=== PATIENT | female | born 1970 | race Caucasian/White ===

== ENCOUNTER 2018-07-04 13:39 | Emergency (ER) | payer MEDICARE, OTHER ==
[2018-07-04 13:44] VITALS: RESP 20
[2018-07-04] MEDS ORDERED: MORPHINE SULFATE 4 MG/ML SYRINGE IM STA (14:10)
[2018-07-04] MEDS ORDERED: HYDROmorphone 0.5 MG/0.5 ML SYRINGE IM STA (14:11)
--- NOTE | 2018-07-04 14:16 | ED ---
General Adult HPI - General Chief complaint: Back Pain/Injury Stated complaint: Back pain Time Seen by Provider: 07/04/18 14:01 Source: patient, EMS, RN notes reviewed, old records reviewed Mode of arrival: EMS Limitations: no limitations - History of Present Illness Initial comments: 48-year-old female patient past medical history of multiple lumbar back procedures presents to the lumbar back pain. Patient's symptoms feel similar to back pain she is experiencing the past. Patient states this has been causing difficulty for approximately 3 days. She describes right paralumbar pain which radiates down her right posterior leg. She denies any saddle anesthesia, loss of bowel or bladder control, lower extremity weakness. Patient denies any other complaints at this time. Denies any chest pain, shortness of breath. Patient denies any recent falls or trauma. Systemic: Pt denies fatigue, fever/chills, rash. Pt denies weakness, night sweats, weight loss. Neuro: Pt denies headache, visual disturbances, syncope or pre-syncope. HEENT: Pt denies ocular discharge or irritation, otalgia, rhinorrhea, pharyngitis or notable lymphadenopathy. Cardiopulmonary: Pt denies chest pain, SOB, heart palpitations, dyspnea on exertion. Abdominal/GI: Pt denies abdominal pain, n/v/d. : Pt denies dysuria, burning w/ urination, frequency/urgency. Denies new onset urinary or bowel incontinence. MSK: Pt denies loss of strength or function in extremities. Neuro: Pt denies new onset weakness, paresthesias. - Related Data Home Medications Medication Instructions Recorded Confirmed Pregabalin [Lyrica] 200 mg PO TID 12/16/16 07/04/18 ALPRAZolam [Xanax] 1 mg PO BID PRN 07/04/18 07/04/18 HYDROcodone/APAP 10-325MG [Cecil 1 tab PO TID PRN 07/04/18 07/04/18 10-325] Previous Rx's Medication Instructions Recorded Cyclobenzaprine [Flexeril] 1 - 2 tab PO TID #20 tablet 07/04/18 predniSONE 50 mg PO DAILY #5 tab 07/04/18 Allergies Allergy/AdvReac Type Severity Reaction Status Date / Time morphine AdvReac Itching Verified 07/04/18 13:56 Review of Systems ROS Statement: Those systems with pertinent positive or pertinent negative responses have been documented in the HPI. ROS Other: All systems not noted in ROS Statement are negative. 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 HEENT: NC/AT, trachea midline, neck supple, no lymphadenopathy. Posterior pharynx non erythematous, without exudates. External ears appear normal, without discharge. Mucous membranes moist. Eyes PERRLA, EOM intact. There is no scleral icterus. No pallor noted. Cardiopulmonary: RRR, no murmurs, rubs or gallops, no JVD noted. Lungs CTAB in anterior and posterior bentley. No peripheral edema. Abdominal exam: Abdomen soft and non-distended. Abdomen non-tender to palpation in all 4 quadrants. Bowel sounds active in LLQ. No hepatosplenomegaly. No ecchymosis Neuro: CN II-XII grossly intact. No nuchal rigidity. MSK: 5 out of 5 strength quadriceps and psoas muscles. Heel to toe walking intact. Patient ambulatory without difficulty. Sensation intact. No midline cervical or thoracic back pain. Mild right paralumbar back pain. Right straight leg raise positive. No posterior calf tenderness bilaterally, homans sign negative bilaterally. Posterior tibialis and radial pulse +2 bilaterally. Sensation intact in upper and lower extremities. Full active ROM in upper and lower extremities, 5/5 stregnth. Limitations: no limitations Course Vital Signs 07/04/18 07/04/18 13:41 16:03 Temperature 97.9 F 98.7 F Pulse Rate 96 88 Respiratory 20 20 Rate Blood Pressure 134/86 145/65 O2 Sat by Pulse 98 99 Oximetry Medical Decision Making - Medical Decision Making 48-year-old female patient past medical history of multiple lumbar back procedures presents to the lumbar back pain. Patient's symptoms feel similar to back pain she is experiencing the past. Patient states this has been causing difficulty for approximately 3 days. She describes right paralumbar pain which radiates down her right posterior leg. She denies any saddle anesthesia, loss of bowel or bladder control, lower extremity weakness. Patient denies any other complaints at this time. Denies any chest patient's of breath. Patient denies any recent falls or trauma. Patient vital signs stable, afebrile. Physical exam displayed: Sensation intact. No midline cervical or thoracic back pain. Mild right paralumbar back pain. Right straight leg raise positive. No posterior calf tenderness bilaterally, homans sign negative bilaterally. Posterior tibialis and radial pulse +2 bilaterally. Plain films of lumbar spine displayed degenerative disc disease, facet arthropathy, postop changes. Patient will be discharged with orthopedic follow-up. PT prescribed 5 days of prednisone as well as muscle relaxer to use as needed. Patient will continue follow-up with primary care provider as well. Pt not driving home. Patient will return to ER if condition worsens in any way. Case discussed with Dr. Littlejohn. Disposition Clinical Impression: Lumbar back sprain, Chronic lumbar pain Disposition: HOME SELF-CARE Condition: Stable Instructions (If sedation given, give patient instructions): Acute Low Back Pain (ED), Chronic Back Pain (ED) Additional Instructions: Patient to adhere to previously discussed treatment plan and will take medication(s) as directed. Patient to follow up with PCP in 1-2 days. Patient to return to ED if symptoms do not improve. Please follow-up with surgical consult. Please follow-up with primary care provider. Return to ER if condition worsens in any way. Prescriptions: Cyclobenzaprine [Flexeril] 1 - 2 tab PO TID #20 tablet predniSONE 50 mg PO DAILY #5 tab Is patient prescribed a controlled substance at d/c from ED?: No Referrals: Les Fernando MD [Primary Care Provider] - 1-2 days Danna Hernandez DO [Doctor of Osteopathic Medicine] - 1-2 days
--- NOTE | 2018-07-04 15:00 | XR ---
Lumbar spine HISTORY: Chronic back pain 3 views of the lumbar spine correlated to prior exam 12/16/2016 Exam is stable. Postop changes are noted at the lumbosacral junction status post fusion and laminecto mies. Surgical clips are present in the right upper quadrant. Lumbar vertebral bodies show stable hei ght, alignment, and bone mineralization. There is multilevel spondylosis. Loss of disc height is grea test at L5-S1, L4-5. Sclerosis present in the posterior elements compatible with facet arthropathy. IMPRESSION: Degenerative disc disease, facet arthropathy and postop changes.
[2018-07-04] MEDS ORDERED: KETOROLAC 30 MG/ML 1 ML VIAL IM STA (15:52)
[2018-07-04 16:04] VITALS: BP 145/65; PULSE 88; TEMP 98.7
== END 2018-07-04 16:04 | disposition home or self-care (01) ==
LOC: SUPCPDRO 13:39 → EC 13:39
DX: S33.5XXA Sprain of ligaments of lumbar spine, initial encounter (principal); M54.5 Low back pain; G89.29 Other chronic pain; F17.200 Nicotine dependence, unspecified, uncomplicated; Z79.899 Other long term (current) drug therapy; Z88.5 Allergy status to narcotic agent; Z53.8 Procedure and treatment not carried out for other reasons
CPT/HCPCS: 72100; 99284; 96372 ×2; J1885; J1170

== ENCOUNTER 2018-11-17 22:56 | Emergency (ER) | payer MEDICARE, OTHER ==
[2018-11-17 23:04] VITALS: BP 122/81; PULSE 97; RESP 18; TEMP 99
--- NOTE | 2018-11-17 23:29 | ED ---
General Adult HPI - General Chief complaint: Back Pain/Injury Stated complaint: back pain Time Seen by Provider: 11/17/18 22:59 Source: patient, EMS, RN notes reviewed, old records reviewed Mode of arrival: EMS Limitations: physical limitation - History of Present Illness Initial comments: 48-year-old female patient past history significant for multiple lumbar spine surgeries, chronic back pain, neurologic disorder of bilateral lower extremities proceed chief complaint of back pain. Patient reports that she got off the toilet and felt a pop in her right paralumbar region. Patient reports that she had pain that shot down her leg. Patient denies any new paresthesias numbness and tingling, denies any loss of bowel or bladder control. Patient reports that she was recently recommended an MRI with and without contrast to evaluate the lumbar spine to determine if she may have had some possible displaced hardware. Patient denies any other complaints at this time. Systemic: Pt denies fatigue, fever/chills, rash. Pt denies weakness, night sweats, weight loss. Neuro: Pt denies headache, visual disturbances, syncope or pre-syncope. HEENT: Pt denies ocular discharge or irritation, otalgia, rhinorrhea, pharyngitis or notable lymphadenopathy. Cardiopulmonary: Pt denies chest pain, SOB, heart palpitations, dyspnea on exertion. Abdominal/GI: Pt denies abdominal pain, n/v/d. : Pt denies dysuria, burning w/ urination, frequency/urgency. Denies new onset urinary or bowel incontinence. MSK: Pt denies myalgia, loss of strength or function in extremities. Neuro: Pt denies new onset weakness, paresthesias. - Related Data Home Medications Medication Instructions Recorded Confirmed Pregabalin [Lyrica] 200 mg PO TID 12/16/16 07/04/18 ALPRAZolam [Xanax] 1 mg PO BID PRN 07/04/18 07/04/18 HYDROcodone/APAP 10-325MG [Hydro 1 tab PO TID PRN 07/04/18 07/04/18 10-325] Previous Rx's Medication Instructions Recorded Cyclobenzaprine [Flexeril] 1 - 2 tab PO TID #20 tablet 07/04/18 predniSONE 50 mg PO DAILY #5 tab 07/04/18 predniSONE 50 mg PO DAILY #5 tab 11/18/18 Allergies Allergy/AdvReac Type Severity Reaction Status Date / Time morphine AdvReac Itching Verified 11/17/18 23:07 Review of Systems ROS Statement: Those systems with pertinent positive or pertinent negative responses have been documented in the HPI. ROS Other: All systems not noted in ROS Statement are negative. 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 HEENT: NC/AT, trachea midline, neck supple, no lymphadenopathy. Posterior pharynx non erythematous, without exudates. External ears appear normal, without discharge. Mucous membranes moist. Eyes PERRLA, EOM intact. There is no scleral icterus. No pallor noted. Cardiopulmonary: RRR, no murmurs, rubs or gallops, no JVD noted. Lungs CTAB in anterior and posterior bentley. No peripheral edema. Abdominal exam: Abdomen soft and non-distended. Abdomen non-tender to palpation in all 4 quadrants. Bowel sounds active in LLQ. No hepatosplenomegaly. No ecchymosis Neuro: CN II-XII grossly intact. No nuchal rigidity. No raccon eyes, no schaefer sign, no hemotympanum. No cervical spinal tenderness. MSK: Right paralumbar region mildly tender to palpation. Right Straight leg raise positive. 5 out of 5 strength lower extremities bilaterally. Patellar and Achilles reflex 2/4 bilaterally. Sensation intact. No posterior calf tenderness bilaterally, homans sign negative bilaterally. Posterior tibialis and radial pulse +2 bilaterally. Sensation intact in upper and lower extremities. Full active ROM in upper and lower extremities, 5/5 stregnth. Limitations: physical limitation Course Vital Signs 11/17/18 22:58 Temperature 99.0 F Pulse Rate 97 Respiratory 18 Rate Blood Pressure 122/81 O2 Sat by Pulse 94 L Oximetry Medical Decision Making - Medical Decision Making 48-year-old female patient past history significant for multiple lumbar spine surgeries, chronic back pain, neurologic disorder of bilateral lower extremities proceed chief complaint of back pain. Patient reports that she got off the toilet and felt a pop in her right paralumbar region. Patient reports that she had pain that shot down her leg. Patient denies any new paresthesias numbness and tingling, denies any loss of bowel or bladder control. Patient reports that she was recently recommended an MRI with and without contrast to evaluate the lumbar spine to determine if she may have had some possible displaced hardware. Patient denies any other complaints at this time. Patient vital signs stable, afebrile. Physical exam displayed: Right paralumbar region mildly tender to palpation. Right Straight leg raise positive. 5 out of 5 strength lower extremities bilaterally. Patellar and Achilles reflex 2/4 bilaterally. Sensation intact. No posterior calf tenderness bilaterally, homans sign negative bilaterally. Posterior tibialis and radial pulse +2 bilaterally. Sensation intact in upper and lower extremities. Full active ROM in upper and lower extremities, 5/[address] lumbar spine displayed previous spinal surgery, no fracture, nausea and spinal stenosis, posterior fusion surgery with extensive osteosclerosis. No definite sign of osteomyelitis.. These findings were explained to patient in depth. Patient verbalized understanding. Pt began making threatneing statements because she wanted to be admitted for inpatient MRI. Patient will be discharged with outpatient orthopedic follow up. Case discussed with Dr. Farah. Disposition Clinical Impression: Lumbar strain Disposition: HOME SELF-CARE Condition: Stable Instructions (If sedation given, give patient instructions): Acute Low Back Pain (ED) Additional Instructions: Patient to adhere to previously discussed treatment plan and will take medication(s) as directed. Patient to follow up with PCP in 1-2 days. Patient to return to ED if symptoms do not improve. Follow-up with orthopedic follow-up, take steroids as directed. Return to ER if condition worsens. Prescriptions: predniSONE 50 mg PO DAILY #5 tab Is patient prescribed a controlled substance at d/c from ED?: No Referrals: Les Fernando MD [Primary Care Provider] - 1-2 days Danna Hernandez DO [Doctor of Osteopathic Medicine] - 1-2 days
[2018-11-17] MEDS ORDERED: HYDROcodone/APAP 5-325MG 1 EACH TAB PO STA (23:31)
--- NOTE | 2018-11-17 23:37 | CT ---
EXAMINATION TYPE: CT lumbar spine wo con DATE OF EXAM: 11/17/2018 11:31 PM COMPARISON: None HISTORY: Back Pain CT DLP: 1104 mGycm Automated exposure control for dose reduction was used. Unenhanced CT of the lumbar spine was performed. Bone and soft tissue window settings are submitted as well as coronal and sagittal reconstructions. Lumbar vertebra have normal alignment. There is previous posterior fusion surgery at L5-S1. There is calcification and posterior disc herniation at L5-S1 narrowing the spinal canal. There is no compress ion fracture. There is moderate narrowing of the L5-S1 disc space. There is no lumbar paraspinal mass . Sacroiliac joints appear intact. There is no focal bone destruction. There is L5 laminectomy defect . IMPRESSION: Previous spinal surgery. No fracture. No significant spinal stenosis. Posterior fusion surgery with e xtensive osteosclerosis. No definite sign of osteomyelitis.
[2018-11-17] MEDS ORDERED: HYDROmorphone 0.5 MG/0.5 ML SYRINGE IVP STA (23:55)
== END 2018-11-18 00:40 | disposition home or self-care (01) ==
LOC: EC 22:56
DX: S39.012A Strain of muscle, fascia and tendon of lower back, initial encounter (principal); F17.200 Nicotine dependence, unspecified, uncomplicated; Z79.899 Other long term (current) drug therapy; Z88.5 Allergy status to narcotic agent; Z98.1 Arthrodesis status; X58.XXXA Exposure to other specified factors, initial encounter
CPT/HCPCS: 72131; 99284

== ENCOUNTER → 2019-11-19 | Outpatient (CLI) | payer MEDICARE, OTHER ==
[2019-11-19 09:27] VITALS: BP 119/55; PULSE 108; RESP 14; TEMP 98.4
--- NOTE | 2019-11-19 10:05 | P.PAINCN ---
History of Present Illness - Reason for Consult Consult date: 11/19/19 - History of Present Illness initial consultation visit for this 49 years old female with a chronic history of severe low back pain, with radiation to the lower extremity patient had multiple lumbar laminectomy and fusion surgery, and she continued to have severe low back pain, the pain is constant and interferes with the quality of life radiated from the low back area to the lower extremities bilaterally associated with numbness and tingling sensation, also patient was then closed with RSD of both lower extremity and she had, spinal cord stimulator trial done without any benefit, patient denies any fever or night sweats she denies any change in the bowel movement or urination, he is currently on Lyrica 200 mg 3 times a day and Percocet 10/325 every 6 hours when necessary and Motrin 800 every 8 hours when necessary, she denies any side effect of the medication and she denies any excessive drowsiness or sleepiness from the medication Past Medical History Additional Past Medical History / Comment(s): Chronic Back pain, RSD in bilateral feet and knees, torn ligament in right knee History of Any Multi-Drug Resistant Organisms: None Reported Past Surgical History: Back Surgery, Cholecystectomy, Hysterectomy, Orthopedic Surgery, Tonsillectomy Additional Past Surgical History / Comment(s): 7 back surgeries,dental implants Past Anesthesia/Blood Transfusion Reactions: No Reported Reaction Past Psychological History: No Psychological Hx Reported Smoking Status: Current every day smoker Past Alcohol Use History: None Reported Additional Past Alcohol Use History / Comment(s): started smoker at age 24 1ppd Past Drug Use History: Marijuana Additional Drug Use History / Comment(s): uses marijuana daily - Past Family History Mother Family Medical History: No Reported History Additional Family Medical History / Comment(s): pt grandfather -lung CA. pt grandmother-pancreatic CA Medications and Allergies Home Medications Medication Instructions Recorded Confirmed Type Pregabalin [Lyrica] 200 mg PO TID 12/16/16 10/19/19 History Ibuprofen [Motrin] 800 mg PO Q2D PRN 10/19/19 10/19/19 History oxyCODONE-APAP 10-325MG [Percocet 1 tab PO Q4HR PRN 10/19/19 10/19/19 History 10-325 mg] Allergies Allergy/AdvReac Type Severity Reaction Status Date / Time morphine AdvReac severe Verified 10/19/19 09:49 Itching Physical Exam Vitals: Vital Signs Temp Pulse Resp BP Pulse Ox 11/19/19 09:18 98.4 F 108 H 14 119/55 94 L Physical Examinations : -Constitutiona : Cooperative , not in acute distress . -HEENT : nech : supple , no Lymphadenopathy , normal thyroid size . : eyes : no ptosis , no icterus, no photophobia . - neurologic : Cranial nerve II to XII intact , no focal neurological deffecit . -psychatric : alert , oriented X 3 , appropriate affect , intact judgment and insight . -Lymphatic : no Lymphadenopathy . - musculoskeltal : Lumber spine moter stegnth lower extremities ,thigh and legs 4-5/5 Right side , 4-5/5 Left side deep tendon reflexes : normal Knee Jerk , normal ankle Jerk lumber facet Loading Test =positive Right , positive Left Range of motion of the lumbar spine Flexion 30 degrees, extension 10 degrees strait leg raising test = positive at 30 degree Fabere test= positive Right , and positive LT . Sever tenderness over the Sacroiliac joint on the Right Gaenslen test= positive right. Seated flexion test= positive right . Results Comments: MRI of the lumbar spine done in November 2018= multilevel lumbar spondylosis with facet arthropathy, previous laminectomy and fusion L4 5 L5-S1 Assessment and Plan Plan: Assessment and plan=1-postlaminectomy pain syndrome lumbar area. 2-right sacroiliitis. 3-lumbar spondylosis with lumbar facet arthropathy. She could benefit from caudal epidural steroid injection with lysis of epidural adhesions under fluoroscopy guidance, Procedure risk and benefits and alternatives discussed with the patient she agreed with proceeding Time with Patient: Less than 30 PQRS Measure Charge Sheet Measure #130: Documentation of Current Meds in Medical Chart: Patient's medications documented in chart Measure #226: Tobacco Use: Screen & Cessation Intervention: Pt screened for tobacco use AND intervention given Measure #111: Pneumonia Vaccination: Pneumococcal vaccine NOT administered or previously given Measure #47: Advance Care Plan: Advance care planning discussed & documented, pt chose/unable to give Measure #412: Opioid Treatment Agreement: No documentation of signed opioid treatment agreement Measure #408: Opioid Therapy Follow-up Evaluation: Patient had NO f/u eval minimum every 3 months during opioid therapy Measure #317: Preventitive Care & Scrn High Bld Press & F/U: Normal blood pressure, f/u not required Measure #128: Body Mass Index (BMI) Screening & Follow-up: BMI documented ABOVE normal parameters - f/u documented Measure #131: Pain Assessment & Follow-up: Pain positive & plan documented, Follow-up scheduled Measure #431: Unhealthy Alcohol Use Preventative Care & Scrn: Patient not identified as an unhealthy alcohol user PQRS Narrative: Smoking Status Current every day smoker Blood Pressure 119/55 Pain Intensity [Back] 9 Scale Used Numeric (1 - 10) Hx Alcohol Use (MH) No Home Medications: Ambulatory Orders Pregabalin [Lyrica] 200 mg PO TID 12/16/16 Ibuprofen [Motrin] 800 mg PO Q2D PRN 10/19/19 oxyCODONE-APAP 10-325MG [Percocet 10-325 mg] 1 tab PO Q4HR PRN 10/19/19
== END | disposition home or self-care (01) ==
LOC: PNWHC3 08:57
PROVIDERS: ATTEND Specialist
DX: G89.29 Other chronic pain (principal); M96.1 Postlaminectomy syndrome, not elsewhere classified; M46.1 Sacroiliitis, not elsewhere classified; M47.816 Spondylosis without myelopathy or radiculopathy, lumbar region; F17.200 Nicotine dependence, unspecified, uncomplicated; Z98.1 Arthrodesis status; Z79.899 Other long term (current) drug therapy; Z88.5 Allergy status to narcotic agent
CPT/HCPCS: 99211